=== PATIENT | female | born 1965 | race Two or more races ===

== ENCOUNTER 2024-02-02 09:14 | Outpatient (AMB) | payer MEDICAID, SELFPAY ==
[2024-02-02 09:34] VITALS: BP 123/73; PULSE 56; RESP 18; TEMP 36.4; O2SAT 98; BMI 22.7
--- NOTE | 2024-02-02 09:34 | PD.ORTHCLVIS ---
Vital signs 02/02/24 09:34 Height 1.65 m Height Method Stated Weight 61.915 kg Weight Measurement Method Standing Scale BMI 22.7 BP 123/73 Blood Pressure Source Automatic Cuff Blood Pressure Location Right Upper Arm Position Sitting Respiration 18 Pulse 56 L Pulse Source Monitor Temp 97.5 F Temp Source Temporal Artery Scan Pulse Oximetry (%) 98 Oxygen Delivery Method Room Air Med/Allergies Allergies & Medications Allergies No Known Allergies Allergy (Verified 02/02/24 09:35) Medication Reconciliation acetaminophen 650 mg tablet,extended release (Tylenol 8 Hour) 650 mg PO Q8H 01/19/24 [History Confirmed 02/02/24] calcium carbonate 600 mg-vitamin D3 10 mcg (400 unit) tablet (Calcium with Vitamin D) 1 tab PO QDAY 01/19/24 [History Confirmed 02/02/24] diclofenac sodium 1 % topical gel 2 g topical QID 01/19/24 [History Confirmed 02/02/24] ibuprofen 600 mg tablet 600 mg PO Q8H PRN 01/19/24 [History Confirmed 02/02/24] meloxicam 7.5 mg tablet 7.5 mg PO QDAY #45 tabs 01/19/24 [Rx Confirmed 02/02/24] Subjective Visit Visit for: follow up visit Immunization / Flu Flu Vaccine in the Last 12 Months: Yes Flu Vaccine Exclusion Criteria: Already Received History of Present Illness Chief complaint: 2 WEEK FOLLOW UP Date of injury / onset of symptoms: 2 YEARS Shelbie is a pleasant 58-year-old female with a left knee pain and left knee arthritis. The pain is on the outer aspect of her knee. She has tried ibuprofen and Tylenol. She has not had any meloxicam previously. She ihasalso tried a left knee brace. Personal History Occupation: [employer] Hobbies: WALKING Red flag PMH: none Pain Pain level (0-10): 3 Pain duration: ON AND OFF Pain location: inside (medial) Pain quality: sharp, aching and tingling Pain timing: night, increases with activity and stairs Associated signs & symptoms: numbness, weakness and stiffness Ambulatory data Ambulatory device: none Walking distance (minutes): 5 Treatments Improvement with previous injections: No Improvement with PT: No Improvement with NSAIDS: no Review of Systems Review of Systems: All systems negative unless otherwise noted in HPI. Exam Exam Patient is in no acute distress and is cooperative with the examination today. Breathing is nonlabored. Patient has a normal mood and affect. The patient has a gait that is [nonantalgic] Bilateral extremities were evaluated and demonstrates sensation intact to light touch. Palpable pedal pulses are present. No significant edema is present. Bilateral hips were examined. The patient has no pain with log roll of the hips. Internal rotation to 30 degrees and external rotation to 30 degrees is painless. Negative FADIR. Right knee was examined today. The right knee is in reasonable alignment. Range of motion from 0-120 degrees. Knee is stable to varus and valgus as well as AP translation with <5mm. Patient has a negative McMurrays. There is no pain with patellofemoral compression and no crepitus noted. The knee is nontender to palpation. Left knee was examined today. The left knee is in valgus alignment. Range of motion from 10-100 degrees. Knee is stable to varus and valgus as well as AP translation with <5mm. Patient has a [negative] McMurrays. There is [no] pain with patellofemoral compression and [no] crepitus noted. The knee is [nontender] to palpation [diffusely]. Assessment and Plan Problem List (1) Degenerative arthritis of knee, bilateral: Status: Acute Plan: Patient is a pleasant 58-year-old male with left greater than right knee pain. She tried a brace. She tried anti-inflammatories and physical therapy. She has advanced arthritis of significant severity. We will start with bilateral knee injections today Recommend knee cortisone injections as patient would like to proceed with conservative treatment at this time. The risks and benefits of the procedure were reviewed with the patient and patient gave verbal consent to continue with the procedure. Procedure: performed by Dr. Bower Using sterile technique the Bilateral knees were thoroughly prepped with alcohol, and approximately 1 cc of Kenalog 40 mg/mL and 4 cc of 1% lidocaine was injected into each knee without resistance into the medial tibial femoral joint space. The patient tolerated the procedure. Office Procedures GNS Level of Care Nursing/Assessment Patient Status: Established Patient Nursing Assessment/Reassesment: Medication Reconciliation, Update PMH in EMR and Vital Signs Coordination of Care: Complex Care and Chronic Disease 1-5, Education Complex Pt/Fam, Consent,records obtained, informed consent and Staff clarify orders Special Needs: Language special needs Established Patient Charge Established Patient Point Assignment: 90 Established Patient Point Charge: EP Level 3 (80-115) Surgical Proc/IM SQ injection Major Surgical Procedure: Yes (BILATERAL KNEE INJECTION) Medication Given Medication Given Medication Given: Yes Documented Dose Given: 8 Route: Infiitration Medication Given Medication Given Medication Given: Yes Documented Dose Given: 2 Route: Infiitration Office Meds Xylocaine 10 mg/mL (1 %) injection solution Performing Provider: Chet Bower MD Performing Location: [facility] Administered by: Chet Bower MD on 02/02/24 10:16 Dose Route Admin Location Dispensed Lot Number Expiration Date [facility] [employer] 40 mL Infiltration 40 mL [id number] 11/11/26 49503-239-54 [employer] triamcinolone acetonide 40 mg/mL suspension for injection Performing Provider: Chet Bower MD Performing Location: [facility] Administered by: Chet Bower MD on 02/02/24 10:16 Dose Route Admin Location Dispensed Lot Number Expiration Date [facility] [employer] 80 mg intra-articular 2 mL [id number] [employer] Past Medical History Past Medical History Have you ever been diagnosed with any of the following: Cardiology Problems Congestive Heart Failure: No Respiratory Problems Chronic Obstructive Pulmonary Disease (COPD): No Smoking: No Smoking Cessation Counseling: No Smoking Exposure: No Tobacco Use: No Genital/Urinary Problems Renal Disease: No Endocrine Problems Diabetes Mellitus Type 1: No Diabetes Mellitus Type 2: No Other Problems Hospitalization: Yes
== END 2024-02-02 09:56 | disposition home or self-care (01) ==
LOC: HODSRG 09:14
PROVIDERS: Supervising Provider Orthopaedic Surgery Adult Reconstructive Orthopaedic Surgery; Visit Provider Orthopaedic Surgery Adult Reconstructive Orthopaedic Surgery
DX: M17.0 Bilateral primary osteoarthritis of knee (principal); M25.562 Pain in left knee; M25.561 Pain in right knee
CPT/HCPCS: 20610; 99213; J3301; J3490; G0463

== ENCOUNTER 2024-05-10 08:59 | Outpatient (AMB) | payer MEDICAID, SELFPAY ==
[2024-05-10 09:10] VITALS: BP 107/73; PULSE 70; RESP 18; TEMP 36.4; O2SAT 97; BMI 22.4
--- NOTE | 2024-05-10 09:10 | PD.ORTHCLVIS ---
Vital signs 05/10/24 09:10 Height 1.65 m Height Method Stated Weight 60.951 kg Weight Measurement Method Standing Scale BMI 22.4 BP 107/73 Blood Pressure Source Automatic Cuff Blood Pressure Location Left Upper Arm Position Sitting Respiration 18 Pulse 70 Pulse Source Monitor Temp 97.5 F Temp Source Temporal Artery Scan Pulse Oximetry (%) 97 Oxygen Delivery Method Room Air Med/Allergies Allergies & Medications Allergies No Known Allergies Allergy (Verified 05/10/24 09:18) Medication Reconciliation acetaminophen 650 mg tablet,extended release (Tylenol 8 Hour) 650 mg PO Q8H 01/19/24 [History Confirmed 05/10/24] calcium 600 mg (as carbonate)-vitamin D3 10 mcg (400 unit) tablet (Calcium with Vitamin D) 1 tab PO QDAY 01/19/24 [History Confirmed 05/10/24] diclofenac sodium 1 % topical gel 2 g topical QID 01/19/24 [History Confirmed 05/10/24] ibuprofen 600 mg tablet 600 mg PO Q8H PRN 01/19/24 [History Confirmed 05/10/24] meloxicam 7.5 mg tablet 7.5 mg PO QDAY #45 tabs 01/19/24 [Rx Confirmed 05/10/24] Exam Exam Patient is in no acute distress and is cooperative with the examination today. Breathing is nonlabored. Patient has a normal mood and affect. The patient has a gait that is [nonantalgic] Bilateral extremities were evaluated and demonstrates sensation intact to light touch. Palpable pedal pulses are present. No significant edema is present. Bilateral hips were examined. The patient has no pain with log roll of the hips. Internal rotation to 30 degrees and external rotation to 30 degrees is painless. Negative FADIR. Right knee was examined today. The right knee is in reasonable alignment. Range of motion from 0-120 degrees. Knee is stable to varus and valgus as well as AP translation with <5mm. Patient has a negative McMurrays. There is no pain with patellofemoral compression and no crepitus noted. The knee is nontender to palpation. Left knee was examined today. The left knee is in valgus alignment. Range of motion from 10-100 degrees. Knee is stable to varus and valgus as well as AP translation with <5mm. Patient has a [negative] McMurrays. There is [no] pain with patellofemoral compression and [no] crepitus noted. The knee is [nontender] to palpation [diffusely]. Xrays demonstrate moderate arthritis bilaterally Assessment and Plan Problem List (1) Degenerative arthritis of knee, bilateral: Status: Acute Plan: Patient is a pleasant 58-year-old male with left greater than right knee pain. She tried a brace. She tried anti-inflammatories and physical therapy. She has advanced arthritis of significant severity. She does not want injections today. She will let us know if the pain worsens. Office Procedures GNS Level of Care Nursing/Assessment Patient Status: Established Patient Nursing Assessment/Reassesment: Medication Reconciliation, Update PMH in EMR and Vital Signs Coordination of Care: Complex Care and Chronic Disease 1-5, Education Complex Pt/Fam, Consent,records obtained, informed consent, Results/Orders obtained and Staff clarify orders Special Needs: Language special needs Established Patient Charge Established Patient Point Assignment: 95 Established Patient Point Charge: EP Level 3 (80-115) MA Intake Visit Data Collection New Patient or Established: Established Patient (seen at [facility] within 3 years) Reason for Visit:: 3 MONTH FOLLOW UP KNEE INJECTION Seen by Clinical Staff ONLY (RN/MA): No 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 PCP or OBGYN visit in last 3 months: Yes Hx Now: No Do You Feel Safe at Home: Yes Authorities Contacted: N/A Questionairres Past Medical History Past Medical History Have you ever been diagnosed with any of the following: Cardiology Problems Congestive Heart Failure: No Respiratory Problems Chronic Obstructive Pulmonary Disease (COPD): No Smoking: No Smoking Cessation Counseling: No Smoking Exposure: No Tobacco Use: No Genital/Urinary Problems Renal Disease: No Endocrine Problems Diabetes Mellitus Type 1: No Diabetes Mellitus Type 2: No Other Problems Hospitalization: Yes Subjective Visit Visit for: follow up visit, knee and injections Immunization / Flu Flu Vaccine in the Last 12 Months: Yes Flu Vaccine Exclusion Criteria: Already Received History of Present Illness Chief complaint: bilateral knee pain Shelbie is a pleasant 58-year-old female with a left knee pain and left knee arthritis. The pain is on the outer aspect of her knee. She has tried ibuprofen and Tylenol. She reports that the last injection has lasted several months. She has also tried a left knee brace. Pain Pain level (0-10): 1 Pain duration: ON AND OFF Pain location: inside (medial) Associated signs & symptoms: none Ambulatory data Ambulatory device: none Treatments Improvement with previous injections: No Improvement with PT: No Improvement with NSAIDS: no Review of Systems Review of Systems: All systems negative unless otherwise noted in HPI.
== END 2024-05-10 09:25 | disposition home or self-care (01) ==
LOC: HODSRG 08:59
PROVIDERS: PCP Physician Assistant; Referring Provider Physician Assistant; Supervising Provider Orthopaedic Surgery Adult Reconstructive Orthopaedic Surgery; Visit Provider Orthopaedic Surgery Adult Reconstructive Orthopaedic Surgery
DX: M17.0 Bilateral primary osteoarthritis of knee (principal); M25.562 Pain in left knee; M25.561 Pain in right knee
CPT/HCPCS: 99213; G0463